=== PATIENT | female | born 1960 | race Caucasian/White ===

== ENCOUNTER 2017-10-03 01:06 | Emergency (ER) | payer OTHER ==
[2017-10-03] MEDS: LIDOCAINE 1% Multi-Dose 50 ML VIAL. INJ (01:35)
[2017-10-03] MEDS: DIPHTH,PERTUSS(ACELL),TET TOX 0.5 ML DISP.SYRIN. VAX IM (02:55)
== END 2017-10-03 03:01 | disposition home or self-care (01) ==
LOC: ER 01:06
DX: S81.811A Laceration without foreign body, right lower leg, initial encounter (principal); L24.9 Irritant contact dermatitis, unspecified cause; Z88.0 Allergy status to penicillin; Z88.2 Allergy status to sulfonamides; W31.89XA Contact with other specified machinery, initial encounter; Y93.89 Activity, other specified; Y99.8 Other external cause status; Y92.89 Other specified places as the place of occurrence of the external cause
CPT/HCPCS: 12002; 90471; 90715; 99283-25

== ENCOUNTER 2017-10-14 12:24 | Emergency (ER) | payer OTHER | END 2017-10-14 12:53 | disposition home or self-care (01) | LOC: ER 12:24 | DX: S81.811D Laceration without foreign body, right lower leg, subsequent encounter (principal); L03.115 Cellulitis of right lower limb; Z88.0 Allergy status to penicillin; Z88.2 Allergy status to sulfonamides; X58.XXXD Exposure to other specified factors, subsequent encounter | CPT/HCPCS: 99283 ==